=== PATIENT | male | born 1970 | race Caucasian/White ===

== ENCOUNTER → 2017-12-29 | Outpatient (REF) | LOC: M SMT 13:47 | DX: Z00.00 Encounter for general adult medical examination without abnormal findings (principal) ==

== ENCOUNTER → 2020-12-03 | Outpatient (REF) ==
--- NOTE | 2020-12-03 15:18 | REP ---
INDICATION: DYSMENORRHEA, UNSPECIFIED. COMPARISON: 12/29/2017 TECHNIQUE: 3 limited views FINDINGS: Vertebral body height and alignment is stable. The pedicles are again seen to be intact bilaterally. Disc space narrowing is again seen at L5-S1 status quo. Minimal L4 and L5 anterior lipping is again noted and unchanged. IMPRESSION: Stable exam as described above. <Electronically signed by Jaswinder Cook > 12/03/20 1748
== END ==
LOC: M PLALAB 14:00 → M PLAIMG 14:00
PROVIDERS: ATTEND Internal Medicine
DX: M51.37 Other intervertebral disc degeneration, lumbosacral region (principal); M54.5 Low back pain